=== PATIENT | male | born 1970 | race Caucasian/White ===

== ENCOUNTER 2025-01-25 15:50 | Emergency (ER) | payer BC, SELFPAY ==
--- NOTE | ~2025-01-25 | US_ITS ---
EXAMINATION: US venous doppler [facility] DATE: 01/25/2025 17:55 INDICATION: Pain and swelling bilaterally TECHNIQUE: Grayscale ultrasound images without and with compression and Doppler ultrasound images of the bilateral lower extremity veins were obtained. COMPARISON: None. FINDINGS: The visualized portions of right common femoral vein, profunda (deep) femoral vein, femoral vein, pop liteal vein, peroneal veins, posterior tibial veins, and greater saphenous vein outflow are patent. The visualized portions of left common femoral vein, profunda femoral vein, femoral vein, popliteal v ein, peroneal veins, posterior tibial veins, and greater saphenous vein outflow are patent. IMPRESSION: 1. No deep venous thrombosis within the bilateral lower extremities, as detailed above. Reviewed, dictated and finalized at location A. IMPRESSION: 1. No deep venous thrombosis within the bilateral lower extremities, as detail ed above.
--- NOTE | ~2025-01-25 | XR_ITS ---
XR knee LT min 4V Ordering provider: Jessica Rdz PA-C History: . pain . Comparison: None. FINDINGS: BONES: No acute fracture or dislocation. JOINT SPACES: Normal. SOFT TISSUES: Ossification of the insertion of the patellar tendon. IMPRESSION: No acute osseous abnormality left knee. Reviewed, dictated and finalized at location A.
--- NOTE | ~2025-01-25 | XR_ITS ---
XR knee RT min 4V Ordering provider: Jessica Rdz PA-C History: . pain, NKI . Comparison: None. FINDINGS: BONES: No acute fracture or dislocation. JOINT SPACES: Normal. SOFT TISSUES: Ossification of the insertion of the patellar tendon into the patella and tibia. IMPRESSION: No acute osseous abnormality right knee. Reviewed, dictated and finalized at location A.
--- NOTE | ~2025-01-25 | CT_ITS ---
CT lumbar spine wo con Ordering provider: Bhavana Hernandez APRN History: 54 years Male with . lower back pain, lower extremity N T . Comparison: None. Technique: CT lumbar spine without contrast. Automated exposure control and iterative reconstruction technique were employed. The dose-length product was 1038.91 mGy-cm. FINDINGS: VERTEBRAE: Normal height and alignment. No subluxation or visible acute fracture. Degenerative change s of the spine. DISC SPACES: Narrowing of the disc L5-S1. Mild diffuse disc bulge at the level of T11 and T12. T12-L1: No stenosis. Mild diffuse disc bulge. L1-L2: No stenosis. Mild diffuse disc bulge. L2-L3: No stenosis. Mild diffuse disc bulge. L3-L4: No stenosis. Mild diffuse disc bulge. L4-L5: No stenosis. Mild diffuse disc bulge. Left facet joint disease. L5-S1: No stenosis. Disc protrusion with osteophyte formation. Narrowing of the foramina with possib le nerve root compression bilaterally is not excluded. Clinical correlation advised. MRI is better fo r evaluation PARASPINOUS SOFT TISSUES: Mild atheromatous disease of the abdominal aorta. IMPRESSION: No acute osseous abnormality. Multilevel disc bulges. Disc protrusion with osteophyte formation at the level of L5-S1 and bilateral intervertebral foramina l narrowing with nerve root compression. MRI is better for evaluation. Reviewed, dictated and finalized at location A. IMPRESSION: No acute osseous abnormality. Multilevel disc bulges. Disc protrusion with osteophyte formation at the level of L5-S1 and bilateral i ntervertebral foraminal narrowing with nerve root compression. MRI is better fo r evaluation.
[2025-01-25 15:54] VITALS: BP 167/99; PULSE 110; RESP 16; TEMP 36.4; O2SAT 97
--- NOTE | 2025-01-25 16:57 | ED_ITS ---
HPI - Extremity Problem General Chief complaint: Extremity Problem,Nontraumatic <TRAN Cardona Last Filed: 01/25/25 17:10> Stated complaint: diff walking due to bilat leg numbess/pain- <TRAN Cardona Last Filed: 01/25/25 17:10> Time Seen by Provider: 01/25/25 16:57 <TRAN Cardona Last Filed: 01/25/25 17:10> Focused HPI: Patient is a 54 y/o male who presents to the ED with c/o pain in his BLE for the past 3-4 weeks. Patient reports over the past 3-4 weeks, he has had progressively worsening pain throughout his legs, to the point he has been having difficulty ambulating due to the pain. He denies weakness of his extremities. He states his legs are very sensitive to the touch. Reports pain seems to be slightly worse in his L leg. Also reports intermittent swelling in LLE. He has been taking tramadol and ibuprofen for the pain without much improvement. States he went to his PCP 2 weeks ago, had negative XRay's, was scheduled for MRI of his lumbar spine this Friday. He denies significant back pain. Denies numbness. Denies saddle anesthesia, incontinence. Has hx of neuropathy in his feet, but states this does not feel similar. Denies hx of blood clots. Denies CP/SOB. Denies recent fall or injury. GENERAL: Well-appearing, obese with BMI of 31.4, and in no acute distress. HEAD: Normocephalic, atraumatic. CHEST: Clear to auscultation. ?No respiratory distress. HEART: Regular rate and rhythm.? MSK: Mild TTP over medial knees bilaterally. Some diffuse tenderness throughout florencia calves. No appreciable swelling of BLE. NEURO: ?Alert and oriented x3. Patient screened in triage and initial orders placed.? ?Additional care and disposition to be based upon?diagnostic testing and treatment. <TRAN Cardona Last Filed: 01/25/25 17:10> Source: patient <TRAN Cardona Last Filed: 01/25/25 17:10> Mode of arrival: ambulatory <Jessica Rdz PA-C - Last Filed: 01/25/25 17:10> Limitations: no limitations <Jessica Rdz PA-C - Last Filed: 01/25/25 17:10> History of Present Illness HPI Narrative: I agree with the assessment and documentation of Jessica Rdz PA-C. <Bhavana Hernandez APRN - Last Filed: 01/26/25 00:32> Related Data Allergies/Adverse reactions: Allergies Allergy/AdvReac Type Severity Reaction Status Date / Time lisinopril Allergy Intermediate Cough Verified 01/25/25 15:52 <Jessica Rdz PA-C - Last Filed: 01/25/25 17:10> Review of Systems 2 Review of Systems: All systems reviewed & are unremarkable except as noted in HPI and below <Bhavana Hernandez APRN - Last Filed: 01/26/25 00:32> Exam 2 Narrative: GENERAL: Well appearing, well-nourished, non-toxic, in no acute distress. HEAD: Normocephalic, atraumatic. NECK: Supple. No adenopathy, no masses. RESPIRATORY: Airway patent, respirations nonlabored. Clear to auscultation bilaterally, no rales, rhonchi, wheezing. CARDIOVASCULAR: Regular rate and rhythm without murmurs, rubs, or gallops. Peripheral pulses 2+ and equal bilaterally. ABDOMINAL: Soft, nontender, nondistended, no hepatosplenomegaly. Normoactive BS. MUSCULOSKELETAL: Moves all extremities. Strength/ROM intact without gross deformities. SKIN: Warm, dry, normal color. No rashes. NEURO: A&O X3. Speech clear. Cranial nerves II-XII intact. No ataxic movements. No saddle anesthesia. PSYCHIATRIC: Appropriate mood and affect. Normal interaction. <PRINCE Cazares Last Filed: 01/26/25 00:32> Course Vital Signs Vital signs: Vital Signs Temperature 36.4 C 01/25/25 15:54 Pulse Rate 110 H 01/25/25 15:54 Respiratory Rate 16 01/25/25 15:54 Blood Pressure 167/99 H 01/25/25 15:54 Pulse Oximetry 97 01/25/25 15:54 Oxygen Delivery Room Air 01/25/25 15:54 Temperature 36.6 C 01/25/25 21:45 Pulse Rate 95 01/25/25 23:18 Respiratory Rate 15 01/25/25 23:18 Blood Pressure 107/92 H 01/25/25 23:18 Pulse Oximetry 97 01/25/25 23:18 Oxygen Delivery Room Air 01/25/25 21:45 <Jessica Rdz PA-C - Last Filed: 01/25/25 17:10> Vital Signs Temperature 36.4 C 01/25/25 15:54 Pulse Rate 110 H 01/25/25 15:54 Respiratory Rate 16 01/25/25 15:54 Blood Pressure 167/99 H 01/25/25 15:54 Pulse Oximetry 97 01/25/25 15:54 Oxygen Delivery Room Air 01/25/25 15:54 Temperature 36.6 C 01/25/25 21:45 Pulse Rate 95 01/25/25 23:18 Respiratory Rate 15 01/25/25 23:18 Blood Pressure 107/92 H 01/25/25 23:18 Pulse Oximetry 97 01/25/25 23:18 Oxygen Delivery Room Air 01/25/25 21:45 <Bhavana Hernandez APRN - Last Filed: 01/26/25 00:32> MDM - Extremity (Nontraumatic) MDM Narrative Medical decision making narrative: MSE by ELA in triage. <Jessica Rdz PA-C - Last Filed: 01/25/25 17:10> MSE by ELA in triage. Patient is a 54 y/o male who presents to the ED with c/o pain in his BLE for the past 3-4 weeks. Patient reports over the past 3-4 weeks, he has had progressively worsening pain throughout his legs, to the point he has been having difficulty ambulating due to the pain. He denies weakness of his extremities. He states his legs are very sensitive to the touch. Reports pain seems to be slightly worse in his L leg. Also reports intermittent swelling in LLE. He has been taking tramadol and ibuprofen for the pain without much improvement. States he went to his PCP 2 weeks ago, had negative XRay's, was scheduled for MRI of his lumbar spine this Friday. He denies significant back pain. Denies numbness. Denies saddle anesthesia, incontinence. Has hx of neuropathy in his feet, but states this does not feel similar. Denies hx of blood clots. Denies CP/SOB. Denies recent fall or injury. Labs Ordered: CBC, CMP, PTT, INR, proBNP, magnesium Imaging Ordered: Left knee x-ray, right knee x-ray, ultrasound Doppler bilateral, CT lumbar spine Medications Ordered: Toradol 15 mg IV, prednisone 40 mg p.o. Results: Pt's CT scan indicates No acute osseous abnormality. Multilevel disc bulges. Disc protrusion with osteophyte formation at the level of L5-S1 and bilateral intervertebral foraminal narrowing with nerve root compression. MRI is better for evaluation. Pt's R knee x-ray indicates No acute osseous abnormality right knee. Pt's L knee x-ray indicates No acute osseous abnormality left knee. US indicates No deep venous thrombosis within the bilateral lower extremities, as detailed above. Diagnosis: bulging discs, foraminal narrowing with nerve root compression Consults: neurosurgery (outpatient) Patient Education/Shared MDM: Results of lab work and imaging shared with patient. He endorses improvement of symptoms following medication administration. Patient strongly advised to maintain hydration status upon discharge and follow-up with their PCP as soon as possible. He reports his PCP already ordered an MRI that is post to take place on Friday. Patient strongly advised to keep that appointment. He can also follow up with Neurosurgery as needed. He will be discharged home with a prescription for Naproxen and Prednisone. Strict return precautions provided. Patient verbalized understanding and is in agreement with plan. Vital signs stable at time of discharge. All questions answered. <Bhavana Hernandez APRN - Last Filed: 01/26/25 00:32> Differential Diagnosis Differential diagnosis: Likely cellulitis, lower extremity edema, deep vein thrombosis of lower extremity and other (Herniated disc, degenerative disc disorder) <Bhavana Hernandez APRN - Last Filed: 01/26/25 00:32> Lab Data Result diagrams: 01/25/25 21:04 01/25/25 20:40 <Jessica Rdz PA-C - Last Filed: 01/25/25 17:10> Labs: Lab Results 01/25/25 01/25/25 Range/Units 20:40 21:04 WBC 9.6 (4.5-10.0) K/mm3 RBC 5.89 (4.6-6.20) M/mm3 Hgb 15.9 (14.0-18.0) g/dL Hct 47.4 (42.0-52.0) % MCV 80.5 (80-100) fl MCH 27.0 (26-34) pg MCHC 33.5 (32-36) g/dl RDW 13.2 (11.5-14.5) % Plt Count 242 (150-375) k/mm3 MPV 9.8 (7.4-10.4) fl Immature Gran % (Auto) 0.5 (0-0.5) % Neut % (Auto) 61.9 (45.5-73.1) % Lymph % (Auto) 24.9 (18.3-44.2) % Roberts % (Auto) 9.5 H (2.6-8.5) % Eos % (Auto) 2.5 (0-4.4) % Baso % (Auto) 0.7 (0.2-1.2) % Lymph # (Auto) 2.39 (0.9-3.2) K/mm3 Roberts # (Auto) 0.9 H (0.1-0.6) K/mm3 Eos # (Auto) 0.2 (0-0.3) K/mm3 Baso # (Auto) 0.1 (0.0-0.1) K/mm3 Abs Immat Gran (auto) 0.05 H (0.00-0.031) K/mm3 Absolute Neuts (auto) 5.9 (1.3-6.7) K/mm3 Absolute Nucleated RBC 0.000 (0.0-0.012) K/mm3 Nucleated RBC % 0.0 (0.0-0.2) % PT 13.4 (11.1-14.7) Seconds INR 1.0 APTT 32.6 (22.3-36.8) Seconds Sodium 139 (137-145) mmol/L Potassium 3.6 (3.4-5.0) mmol/L Chloride 103 (98-107) mmol/L Carbon Dioxide 27 (22-30) mmol/L Anion Gap 9 (4-12) mmol/L BUN 26 H (9-20) mg/dL Creatinine 0.95 (0.7-1.3) mg/dL Estim Creat Clear Calc 97 ml/min Estimated GFR > 60 (59 - ) Glucose 102 (65-110) mg/dL Calcium 9.6 (8.4-10.2) mg/dL Magnesium 2.0 (1.6-2.3) mg/dL Total Bilirubin 0.7 (0.2-1.3) mg/dL AST 36 (17-59) U/L ALT 36 (6-50) U/L Alkaline Phosphatase 96 (38-126) U/L NT-Pro-B Natriuret Pep 59 (19.9-100) pg/mL Total Protein 8.0 (6.3-8.2) g/dL Albumin 4.7 (3.5-5.1) g/dL <Jessica Rdz PA-C - Last Filed: 01/25/25 17:10> Lab Results 01/25/25 01/25/25 Range/Units 20:40 21:04 WBC 9.6 (4.5-10.0) K/mm3 RBC 5.89 (4.6-6.20) M/mm3 Hgb 15.9 (14.0-18.0) g/dL Hct 47.4 (42.0-52.0) % MCV 80.5 (80-100) fl MCH 27.0 (26-34) pg MCHC 33.5 (32-36) g/dl RDW 13.2 (11.5-14.5) % Plt Count 242 (150-375) k/mm3 MPV 9.8 (7.4-10.4) fl Immature Gran % (Auto) 0.5 (0-0.5) % Neut % (Auto) 61.9 (45.5-73.1) % Lymph % (Auto) 24.9 (18.3-44.2) % Roberts % (Auto) 9.5 H (2.6-8.5) % Eos % (Auto) 2.5 (0-4.4) % Baso % (Auto) 0.7 (0.2-1.2) % Lymph # (Auto) 2.39 (0.9-3.2) K/mm3 Roberts # (Auto) 0.9 H (0.1-0.6) K/mm3 Eos # (Auto) 0.2 (0-0.3) K/mm3 Baso # (Auto) 0.1 (0.0-0.1) K/mm3 Abs Immat Gran (auto) 0.05 H (0.00-0.031) K/mm3 Absolute Neuts (auto) 5.9 (1.3-6.7) K/mm3 Absolute Nucleated RBC 0.000 (0.0-0.012) K/mm3 Nucleated RBC % 0.0 (0.0-0.2) % PT 13.4 (11.1-14.7) Seconds INR 1.0 APTT 32.6 (22.3-36.8) Seconds Sodium 139 (137-145) mmol/L Potassium 3.6 (3.4-5.0) mmol/L Chloride 103 (98-107) mmol/L Carbon Dioxide 27 (22-30) mmol/L Anion Gap 9 (4-12) mmol/L BUN 26 H (9-20) mg/dL Creatinine 0.95 (0.7-1.3) mg/dL Estim Creat Clear Calc 97 ml/min Estimated GFR > 60 (59 - ) Glucose 102 (65-110) mg/dL Calcium 9.6 (8.4-10.2) mg/dL Magnesium 2.0 (1.6-2.3) mg/dL Total Bilirubin 0.7 (0.2-1.3) mg/dL AST 36 (17-59) U/L ALT 36 (6-50) U/L Alkaline Phosphatase 96 (38-126) U/L NT-Pro-B Natriuret Pep 59 (19.9-100) pg/mL Total Protein 8.0 (6.3-8.2) g/dL Albumin 4.7 (3.5-5.1) g/dL <Bhavana Hernandez APRN - Last Filed: 01/26/25 00:32> Discharge Plan Discharge Clinical Impression: Bulging discs, Numbness and tingling of both legs, Lower extremity pain, bilateral, Lumbar radiculopathy <Jessica Rdz PA-C - Last Filed: 01/25/25 17:10> Patient Disposition: Home <MARCY CardonaC - Last Filed: 01/25/25 17:10> Condition: Stable <Jessica Rdz PA-C - Last Filed: 01/25/25 17:10> Instructions: Antibiotic Form, Lumbar Radiculopathy (ED), Back Pain (ED), Leg Pain (ED) <Jessica Rdz PA-C - Last Filed: 01/25/25 17:10> Additional Instructions: Please return to the ER with any worsening symptoms. Follow-up with primary care provider as soon as possible. Keep your appointment for your MRI on Friday as discussed. Take all medications as prescribed, including regularly scheduled medications. <Jessica Rdz PA-C - Last Filed: 01/25/25 17:10> Patient Language: Amharic <Jessica Rdz PA-C - Last Filed: 01/25/25 17:10> Prescriptions: New naproxen 500 mg tablet 500 mg PO BID PRN (Reason: pain) Qty: 20 0RF prednisone 20 mg tablet 20 mg PO BID Qty: 10 0RF <Jessica Rdz PA-C - Last Filed: 01/25/25 17:10> Follow-up/Referrals: PHYSICIAN NOT ON STAFF,NONSTAFF [Primary Care Provider] - <Jessica Rdz PA-C - Last Filed: 01/25/25 17:10> Time of Disposition: 00:32 <Jessica Rdz PA-C - Last Filed: 01/25/25 17:10> 00:32 <Bhavana Hernandez APRN - Last Filed: 01/26/25 00:32>
--- OUTSIDE RECORDS SUMMARY | 2025-01-25 20:33 | XMS_ITS | Continuity of Care Document ---
Author Organization 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, [place], [id number], [place]. tel:[phone] Family History Family Member Type Diagnosis Age At Onset No Information Payers Payer name Insurance type Covered democrat ID Authoriza tion(s) No Information Social History Type Description Quantity Date Captured Comments Sex Male Smoking Status No Information Chief Complaint And Reason For Visit No Information Reason For Referral Reason For Referral No Information History Of Present Illness Encounter Date Complaint History Of Prese nt Illness No Information Functional Status Date Functional Assessmen t No Information Instructions Date Instruction Additional Infor mation No Information Assessments Type Assessment Date No Information Patient Care Teams Name Effective Dates (start - stop) Status Members No Information
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
--- OUTSIDE RECORDS SUMMARY | 2025-01-25 20:33 | XMS_ITS | CONTINUITY OF CARE DOCUMENT ---
Author Name karen jones Address Unknown Organization [facility] Address [address] [facility] [address] [place] [address] Phone [phone] Care Team Providers Care Carpentry Specialist Name Role Phone Carissa Barraza MD Unavailable [phone] Carissa Barraza MD Unavailable [phone] INSURANCE PROVIDERS Payer name Policy type / Coverage type [place] red green party ID [facility] [employer] [id number]
--- OUTSIDE RECORDS SUMMARY | 2025-01-25 20:33 | XMS_ITS | Encounter Summary ---
Author Organization [facility] Health Address [address] [place] [address] Care Team Providers Care Clinic Manager Name Role Phone Romain Hein PA-C Primary Care Provider King Wilson MD Primary Care Provider [phone] Reason for Visit * Reason Onset Date Comments MEDICATION REFILL 03/30/2023 Encounter Details Date Type Department Care Team (Late st Contact Info) Description 03/30/2023 Refill [facility] - Family Medicine [address] [place] [address] Romain Hein PA-C [address] [place] [phone] MEDICATION REFILL Social History Tobacco Use Types Packs/Day Years Used Date Smoking Tobacco: Never Smokeless Tobacco: Never Alcohol Use Standard Drinks/Week Comments Yes 0 [...] on file 06/01 PHQ-2 Answer Date Recorded PHQ2 TOTAL SCORE 0 03/18/2023 Sex and Gender Information Value Date Recorded Sex Assigned at Not on file Legal Sex Male 1:24 PM CDT Gender Identity Not on file Sexual Orientation Not on file documented as of this encounter Miscellaneous Notes * Telephone Encounter - Neri Khan MA - 03/31/2023 12:48 PM CDT Duplicate documented in this encounter Plan of Treatment Upcoming Encounters Date Type Department Care Team (Late st Contact Info) Description 01/28/2025 12:45 PM CDT Appointment [facility] Health Imaging Services - MRI [address] [place] [phone] Romain Hein PA-C [address] [address] documented as of this encounter Visit Diagnoses Diagnosis Uncontrolled type 2 diabetes mellitus with hyperglycemia (HCC) documented in this encounter Additional Health Concerns Infection Onset Date Last Indicated Resolved Time COVID-19 Under Investigation 04/13/2024 04/13/2024 04/13/2024 4:51 PM CDT documented as of this encounter Care Teams Clinic Manager Relationship Specialty Start Date End Date Romain Hein PA-C [address] [phone] PCP - General 06/08/20 11/01/24 King Wilson MD [address] [address] PCP - General Family Medicine 11/02/24 documented as of this encounter
--- OUTSIDE RECORDS SUMMARY | 2025-01-25 20:33 | XMS_ITS | Clinical Summary ---
Author Organization [facility] Address [address] [facility] [place] [address] Phone Care Team Providers Care Validation Consultant Name Role Phone Romain Hein PA-C Primary Care Provider Allergies Active Allergy Reactions Criticality Noted Date Comments Lisinopril Cough Low 10/09/2011 Medications ascorbic acid (Vitamin C) 500 mg tablet Take 500 mg by mouth 1 (one) time each day. Active b complex tablet Take 1 tablet by mouth 1 (one) time each day. Active cholecalcifero l (Vitamin D-3) 50 mcg (2,000 unit) tablet Take 2,000 Units by mouth 1 (one) time each day. Active atorvastatin (Lipitor) 40 mg tablet Take 40 mg by mouth 1 (one) time each day. 2 Active docusate sodium (Colace) 100 mg capsule Take 100 mg by mouth in the morning and 100 mg in the evening. 2 Active dulaglutide 1.5 mg/0.5 mL pen injector Inject 1.5 mg under the skin once a week. 2 Active glyburide-metf ormin (Glucovance) 5-500 mg tablet Take 1 tablet by mouth 2 (two) times a day. Active insulin glargine (Lantus) 100 unit/mL (3 mL) injection Inject 35 Units under the skin every night. 2 Active losartan (Cozaar) 50 mg tablet Take 50 mg by mouth 1 (one) time each day. 2 Active multivitamin tablet Take 1 tablet by mouth 1 (one) time each day. Active pregabalin (Lyrica) 50 mg capsule Take 50 mg by mouth 3 (three) times a day. 2 Active cyclobenzaprin e (Flexeril) 10 mg tablet Take 1 tablet (10 mg total) by mouth 3 (three) times a day if needed for muscle spasms for up to 10 days. 30 tablet 2 Active Additional Information Patient not taking.Reported on 04/03/2024 HYDROcodone-ac etaminophen ([place]) 5-325 mg tablet Take 1 tablet by mouth every 6 (six) hours if needed for severe pain (7-10). 18 tablet 2 Active Additional Information Patient not taking.Reported on 04/03/2024 Jardiance 10 mg Take 10 mg by mouth 1 (one) time each day. 3 Active insulin lispro (HumaLOG) 100 unit/mL injection Inject 15 Units under the skin in the morning and 15 Units at noon and 15 Units in the evening. Inject with meals. Active metFORMIN XR (Glucophage-XR ) 500 mg 24 hr tablet Take 500 mg by mouth 2 (two) times a day. 4 Active multivitamin 400 mcg tablet Take 1 tablet by mouth 1 (one) time each day. Active pregabalin (Lyrica) 100 mg capsule Take 100 mg by mouth 2 (two) times a day. 4 Active Mounjaro injection pen INJECT 1 SYRINGE SUBCUTANEOUSLY ONCE A WEEK Active Active Problems No known active problems Social History Tobacco Use Types Packs/Day Years Used Date Smoking Tobacco: Never Assessed PHQ-2 Answer Date Recorded Patient Health Questionnaire-2 Score 0 05/28/2024 [facility] - Mental Health Answer Date Recorde d Little interest or pleasure in doing things Not at all 05/28/2024 Feeling down, depressed, or hopeless Not at all 05/28/2024 Feeling of Stress Not on file 05/28/2024 Sex and Gender Information Value Date Recorded Sex Assigned at Not on file Legal Sex Male 12:39 PM CDT Gender Identity Not on file Sexual Orientation Not on file Last Filed Vital Signs Vital Sign Reading Time Taken Comments Blood Pressure 136/85 05/28/2024 11:27 AM CDT Pulse 77 05/28/2024 11:27 AM CDT Temperature 36.2 C (97.1 F) 05/28/2024 11:27 AM CDT Respiratory Rate 15 04/12/2022 2:33 PM CDT Oxygen Saturation 96% 05/28/2024 11:27 AM CDT Inhaled Oxygen Concentration - - Weight 109 kg (241 lb 3.2 oz) 05/28/2024 11:27 A M CDT Height 182.9 cm (6') 04/12/2022 2:33 PM CDT Body Mass Index 32.71 04/12/2022 2:33 PM CDT Plan of Treatment Health Maintenance Due Date Last Done Comments CT Colonography 1969 Colonoscopy 1969 Colorectal Cancer Screening 1969 Diabetes: Hemoglobin A1C 1969 FIT-DNA 1969 FIT 1969 FOBT 1969 Sigmoidoscopy 1969 MMR Vaccines (1 of 1 - Stand yolanda series) 1970 DTaP,Tdap,and Td Vaccines (1 - Tdap) 1976 Diabetes: Foot Exam 1979 Diabetes: Retinopathy Screening 1979 Varicella Vaccines (1 of 2 - 13+ 2-dose series) 1982 Hepatitis B Vaccines (1 of 3 - 19+ 3-dose series) 1988 Pneumococcal Vaccine: 50+ Ye ars (1 of 2 - PCV) 1988 Pneumococcal Vaccine (1 of 2 - PCV) 1988 Zoster Vaccines (1 of 2) 2019 COVID-19 Vaccine ( - 2023-2 5 season) 2024 Influenza Vaccine (Season Ended) 2025 RSV Vaccines (1 - 1-dose 75+ series) 2044 HIB Vaccines Aged Out No longer eligi ble based on patient's age to complete this topic HPV Vaccines Aged Out No longer eligi ble based on patient's age to complete this topic Hepatitis A Vaccines Aged Out No long er eligible based on patient's age to complete this topic IPV Vaccines Aged Out No longer eligi ble based on patient's age to complete this topic Meningococcal B Vaccine Aged Out No l onger eligible based on patient's age to complete this topic Meningococcal Vaccine Aged Out No vanita rhianna eligible based on patient's age to complete this topic Rotavirus Vaccines Aged Out No longer eligible based on patient's age to complete this topic Insurance [employer] OTHER Care Teams Validation Consultant Relationship Specialty Start Date End Date Romain Hein PA-C [address] [facility] [address] [place] [address] PCP - General Jewish Thought Professor 04/03/24
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
--- OUTSIDE RECORDS SUMMARY | 2025-01-25 20:33 | XMS_ITS | Encounter Summary ---
Author Organization [facility] Address [address] [place] [address] Care Team Providers Care Rigging Up Man Name Role Phone King Wilson MD Primary Care Provider [phone] Reason for Referral * Radiology Services (Routine) - Pending Review Specialty Diagnoses / Procedures Referred By Contac t Referred To Contact Diagnoses Acute bilateral low back pain with bilateral sciatica Neuropathy Procedures MRI Lumbar Spine Wo Contrast Romain Hein PA-C [address] [address] Phone: tel: fax: [address] [address] Phone: tel: Referral ID Status Reason Start Date Expiration Date V isits Requested Visits Authorized [id number] Pending Review 01/13/2025 01/13/2026 1 1 Reason for Visit * Reason Onset Date Comments Medication Issue 01/13/2025 Encounter Details Date Type Department Care Team (Late st Contact Info) Description 01/13/2025 Results Follow-Up [facility] - Family Medicine [address] [facility] [address] [place] [address] Romain Hein PA-C [address] [phone] Medication Issue Social History Tobacco Use Types Packs/Day Years [...] encounter Miscellaneous Notes * Telephone Encounter - Romain Hein PA-C - 01/20/2025 4:47 PM CDT Requesting Ultram 50 mg for leg pain. Awaiting L-spine MRI. Rx pended. * Telephone Encounter - Pollo Currie LPN - 01/20/2025 12:29 PM CDT Patient unable to get MRI today due insurance still pending decision. Patient requesting pain medication be sent to [facility] in [place] Legs are very sore documented in this encounter Plan of Treatment Upcoming Encounters Date Type Department Care Team (Late st Contact Info) Description 01/28/2025 12:45 PM CDT Appointment [facility] Health Imaging Services - MRI [address] [place] [address] Romain Hein PA-C [address] [place], [place] [phone] Scheduled Orders Name Type Priority Associated Diagnoses Orde r Schedule MRI Lumbar Spine Wo Contrast Imaging Routine Acute bilateral low back pain with bilateral sciatica Neuropathy 1 Occurrences starting 01/13/2025 until 01/13/2026 documented as of this encounter Visit Diagnoses Diagnosis Acute bilateral low back pain with bilateral sciatica- Primary Neuropathy Mononeuritis of unspecified site documented in this encounter Care Teams Rigging Up Man Relationship Specialty Start Date End Date King Wilson MD [address] [address] PCP - General Family Medicine 11/02/24 documented as of this encounter
--- OUTSIDE RECORDS SUMMARY | 2025-01-25 20:33 | XMS_ITS | Referral Summary ---
Author Organization [facility] Address [address] [facility] [place] [address] Phone Care Team Providers Care Dance Hall Hostess Name Role Phone Romain Hein PA-C Primary [...] Patient not taking.Reported on 04/03/2024 HYDROcodone-ac etaminophen ([place]) 5-325 mg tablet Take 1 tablet by [...] Recorded Patient Health Questionnaire-2 Score 0 05/28/2024 [facility] - Mental Health Answer Date Recorde d [...] 04/12/2022 2:33 PM CDT Plan of Treatment Not on file Insurance BLUE CROSS [facility] OTHER Care Teams Dance Hall Hostess Relationship Specialty Start Date End Date Romain Hein PA-C [address] [facility] [address] [place] [address] PCP - General Bucket Operator 04/03/24
[2025-01-25 20:57] LABS: Alanine Aminotransferase 36 U/L (6-50); Albumin Level 4.7 g/dL (3.5-5.1); Alkaline Phosphatase 96 U/L (38-126); Anion Gap 9 mmol/L (4-12); Aspartate Amino Transferase 36 U/L (17-59); Bilirubin,Total 0.7 mg/dL (0.2-1.3); Blood Urea Nitrogen 26 mg/dL (9-20); Calcium 9.6 mg/dL (8.4-10.2); Carbon Dioxide 27 mmol/L (22-30); Chloride 103 mmol/L (98-107); Estimated CRCL calculation 97 ml/min; Estimated Glomerular Filt Rate > 60; Glucose 102 mg/dL (65-110); Potassium 3.6 mmol/L (3.4-5.0); Sodium 139 mmol/L (137-145)
[2025-01-25 21:04] LABS: Prothrombin Time 13.4 Seconds (11.1-14.7)
[2025-01-25 21:05] LABS: Partial Thromboplastin Time 32.6 Seconds (22.3-36.8)
[2025-01-25 21:07] LABS: NT Pro B Type Natriuretic Pept 59 pg/mL (19.9-100)
[2025-01-25 21:11] LABS: Basophils Absolute Auto 0.1 K/mm3 (0.0-0.1); Basophils Percent Auto 0.7 % (0.2-1.2); Eosinophils Absolute Auto 0.2 K/mm3 (0-0.3); Eosinophils Percent Auto 2.5 % (0-4.4); Hematocrit 47.4 % (42.0-52.0); Hemoglobin 15.9 g/dL (14.0-18.0); Immature Granulocyte Absolute 0.05 K/mm3 (0.00-0.031); Immature Granulocyte Percent A 0.5 % (0-0.5); Lymphocytes Absolute Auto 2.39 K/mm3 (0.9-3.2); Lymphocytes Percent Auto 24.9 % (18.3-44.2); Mean Corpuscular HGB Conc 33.5 g/dl (32-36); Mean Corpuscular Volume 80.5 fl (80-100); Mean Platelet Volume 9.8 fl (7.4-10.4); Monocytes Absolute Auto 0.9 K/mm3 (0.1-0.6); Monocytes Percent Auto 9.5 % (2.6-8.5); Neutrophils Absolute Auto 5.9 K/mm3 (1.3-6.7); Neutrophils Percent Auto 61.9 % (45.5-73.1); Platelet Count Result 242 k/mm3 (150-375); Red Blood Count 5.89 M/mm3 (4.6-6.20); Red Cell Distribution Width 13.2 % (11.5-14.5); White Blood Count 9.6 K/mm3 (4.5-10.0)
[2025-01-25 21:45] VITALS: BP 145/105; PULSE 102; RESP 15; TEMP 36.6; O2SAT 96
[2025-01-25] MEDS: KETOROLAC (*BKC) 60 MG/2 ML VIAL IM (21:53)
[2025-01-25] MEDS: predniSONE 20 MG TABLET 40 MG PO (21:55)
[2025-01-25 23:18] VITALS: BP 107/92; PULSE 95; RESP 15; O2SAT 97
== END 2025-01-26 00:38 | disposition home or self-care (01) ==
PROVIDERS: Physician Assistant; Emergency Provider Registered Nurse
DX: M51.16 Intervertebral disc disorders with radiculopathy, lumbar region (principal)
CPT/HCPCS: 36415; 72131; 73564; 80053; 83735; 83880; 85025; 85610; 85730; 93970; 96372; 99284; J1885; J7512